=== PATIENT | female | born 1970 | race Caucasian/White ===

== ENCOUNTER 2018-07-12 09:48 | Emergency (ER) | payer OTHER ==
[~2018-07-12] VITALS: Ht 167.6 cm; Wt 80.3 kg
--- NOTE | 2018-07-12 10:02 | PHYS DOC ---
Past History Past Medical History: Migraines, Other Additional Past Medical Histor: post menopausal since 2012 Past Surgical History: Other Additional Past Surgical Histo: ablation Smoking: Cigarettes Alcohol Use: None Drug Use: None Adult General Chief Complaint Chief Complaint: HEADACHE HPI HPI Patient is a 47-year-old female presents complaining of a headache since 3:00 this morning. It is similar to her previous vestibular migraines. No relief with Zofran for her nausea. Reports last throwing up just prior to arrival. No blood in the emesis. Not worst headache of life. Photophobia is present. Patient has been previously prescribed Imitrex, last use it 3 months ago, and has not refilled it since that time. Denies any head trauma. Denies any fever.[] Review of Systems Review of Systems Constitutional: Denies fever or chills [] Eyes: Denies change in visual acuity, redness, or eye pain [] HENT: Denies nasal congestion or sore throat [] Respiratory: Denies cough or shortness of breath [] Cardiovascular: No chest pain or palpitations[] GI: Denies abdominal pain, nausea, vomiting, bloody stools or diarrhea [] : Denies dysuria or hematuria [] Musculoskeletal: Denies back pain or joint pain [] Integument: Denies rash or skin lesions [] Neurologic: Denies focal weakness or sensory changes, see history of present illness [] Endocrine: Denies polyuria or polydipsia [] All other systems were reviewed and found to be within normal limits, except as documented in this note. Physical Exam Physical Exam Constitutional: Well developed, well nourished, mild discomfort, non-toxic appearance. [] HENT: Normocephalic, atraumatic, bilateral external ears normal, oropharynx moist, no oral exudates, nose normal. [] Eyes: PERRLA, EOMI, conjunctiva normal, no discharge. [] Neck: Normal range of motion, tenderness in the left trapezius. No meningismus, supple, no stridor. [] Cardiovascular:Heart rate regular rhythm, no murmur [] Lungs & Thorax: Bilateral breath sounds clear to auscultation [] Abdomen: Bowel sounds normal, soft, no tenderness, no masses, no pulsatile masses. [] Skin: Warm, dry, no erythema, no rash. [] Back: No tenderness, no CVA tenderness. [] Extremities: No tenderness, no cyanosis, no clubbing, ROM intact, no edema. [] Neurologic: Alert and oriented X 3, normal motor function, normal sensory function, no focal deficits noted. [] Psychologic: Affect normal, judgement normal, mood normal. [] EKG EKG [] Radiology/Procedures Radiology/Procedures [] Course & Med Decision Making Course & Med Decision Making Pertinent Labs and Imaging studies reviewed. (See chart for details) ED course: Patient arrived, was placed in bed, and tolerated exam well. She reported significant improvement with the pain medicines administered. She was discharged in improved condition. Medical decision making: There is no evidence of meningitis, encephalitis, intracranial bleed, nor stroke, nor other significant etiology for this headache.[] Dragon Disclaimer Dragon Disclaimer This electronic medical record was generated, in whole or in part, using a voice recognition dictation system. Departure Departure: Impression: Primary Impression: Migraine Disposition: HOME, SELF-CARE Condition: IMPROVED Referrals: ELEANOR FRIAS MD (PCP) Follow-up in 2 days Patient Instructions: Migraine Headache Additional Instructions: Follow-up with your regular doctor in 2 days. Take your medication as prescribed. Return to the ER if worsening pain, fever of more than 101, unable to tolerate medication, or any other concerns. Scripts Metoclopramide Hcl (REGLAN) 10 Mg Tablet 10 MG PO QID for nausea and vomiting, #30 TAB Prov: JENNIFER FLORES DO 07/12/18 Meloxicam (MELOXICAM) 7.5 Mg Tablet 7.5 MG PO DAILY for PAIN, #20 TAB Prov: JENNIFER FLORES DO 07/12/18 Problem Qualifiers Primary Impression: Migraine Migraine type: unspecified Status migrainosus presence: without status migrainosus Intractability: not intractable Qualified Codes: G43.909 - Migraine, unspecified, not intractable, without status migrainosus JENNIFER FLORES DO July 12, 2018 10:02
[2018-07-12] MEDS ORDERED: KETOROLAC 15 MG/ML VIAL. IM ONE (10:15)
[2018-07-12] MEDS ORDERED: METOCLOPRAMIDE HCL 10 MG/2 ML VIAL. IM ONE (10:15)
[2018-07-12] MEDS ORDERED: diphenhydrAMINE 50 MG/ML VIAL IM ONE (10:15)
[2018-07-12] MEDS ORDERED: MELO7.5T29 PO (10:42)
[2018-07-12] MEDS ORDERED: METO10TA81 PO (10:42)
[2018-07-12 10:45] VITALS: BP 143/79
== END 2018-07-12 10:47 | disposition home or self-care (01) ==
LOC: ER 09:48
DX: G43.909 Migraine, unspecified, not intractable, without status migrainosus (principal); F17.210 Nicotine dependence, cigarettes, uncomplicated
CPT/HCPCS: 96372; 99284; J1200; J1885; J2765

== ENCOUNTER 2019-06-30 08:12 | Emergency (ER) | payer SELFPAY ==
[~2019-06-30] VITALS: Ht 165.1 cm; Wt 80.0 kg
[~2019-06-30 08:12] MED LIST: MELO7.5T29 PO; METO10TA81 PO
[2019-06-30 08:27] VITALS: BP 129/67
--- NOTE | 2019-06-30 08:41 | PHYS DOC ---
Past History Past Medical History: Migraines, Other Additional Past Medical Histor: post menopausal since 2012 Past Surgical History: Other Additional Past Surgical Histo: Uterine ablation Smoking: Cigarettes Alcohol Use: None Drug Use: None General Adult EDM: Chief Complaint: HEADACHE HPI: HPI: Patient is a 48-year-old female who presents to the emergency department for evaluation. She states that she has a history of migraines and had a gradual onset of a headache yesterday evening, which is exactly the same as her prior migraines. She has had episodes of nausea and vomiting, and was unable to hold down the Imitrex and Zofran which she has tried taking. She denies any vision changes, numbness, weakness. The headache was gradual in onset, and was not "the worst headache of her life", and she is not having any other neurological symptoms. She has had exactly the same complex of symptoms in the past. There are no alleviating or exacerbating factors to her symptoms except that light seems to worsen her head pain. Review of Systems: Review of Systems: Constitutional: Denies fever or chills Eyes: Denies change in visual acuity HENT: Denies nasal congestion or sore throat Respiratory: Denies cough or shortness of breath Cardiovascular: Denies chest pain or edema GI: Denies abdominal pain bloody stools or diarrhea : Denies dysuria Musculoskeletal: Denies back pain or joint pain Integument: Denies rash Neurologic: Denies focal weakness or sensory changes Endocrine: Denies polyuria or polydipsia Lymphatic: Denies swollen glands Psychiatric: Denies depression or anxiety Heart Score: Risk Factors: Risk Factors: DM, Current or recent (<one month) smoker, HTN, HLP, family history of CAD, obesity. Risk Scores: Score 0 - 3: 2.5% MACE over next 6 weeks - Discharge Home Score 4 - 6: 20.3% MACE over next 6 weeks - Admit for Clinical Observation Score 7 - 10: 72.7% MACE over next 6 weeks - Early Invasive Strategies Current Medications: Current Meds: Current Medications Medications (Trade) Dose Ordered Sig/Chante Start Time Stop Time Status Last Admin Dose Admin Diphenhydramine HCl (Benadryl) 25 mg 1X ONCE 06/30/19 08:45 06/30/19 08:46 UNV Ketorolac Tromethamine (Toradol 30mg Vial) 30 mg 1X ONCE 06/30/19 08:45 06/30/19 08:46 UNV Prochlorperazine Edisylate (Compazine) 10 mg 1X ONCE 06/30/19 08:45 06/30/19 08:46 UNV Sodium Chloride 1,000 ml @ 1,000 mls/hr 1X ONCE 06/30/19 08:45 06/30/19 09:44 UNV Allergies: Allergies: Allergies Coded Allergies Type Severity Reaction Last Updated Verified No Known Drug Allergies 07/12/18 No Physical Exam: PE: PHYSICAL EXAM: CONSTITUTIONAL: Well developed, well nourished HEAD: normocephalic, atraumatic EENT: PERRL, EOMI. Conjunctivae normal color, sclerae non-icteric; moist mucous membranes. NECK: Supple, non-tender; no meningismus. LUNGS: Lungs CTA, breathing even and unlabored. Normal air movement. HEART: Regular rate and rhythm, no murmur CHEST: No deformity; non-tender ABDOMEN: The abdomen is soft, and non-tender, no masses or bruits. EXTREM: Normal ROM; no deformity, no calf tenderness. Normal pulses palpable in all extremities. There is no pedal edema. SKIN: No rash; no diaphoresis NEURO: Alert; normal speech and cognition; CN's grossly intact; strength grossly intact without focal deficit. BACK: No CVA TTP. EKG: EKG: [] Radiology/Procedures: Radiology/Procedures: [] Course & Med Decision Making: Course & Med Decision Making Patient is feeling significantly better at this time. I discussed the importance of close follow-up and return precautions. Good Disclaimer: Good Disclaimer: This electronic medical record was generated, in whole or in part, using a voice recognition dictation system. Departure Departure: Impression: Primary Impression: Migraine Disposition: HOME, SELF-CARE Condition: STABLE Referrals: ELEANOR FRIAS MD (PCP) Patient Instructions: Migraine Headache VIBHA LUGO MD June 30, 2019 08:40
[2019-06-30] MEDS ORDERED: PROCHLORPERAZINE 10 MG/2 ML VIAL. IV ONE (08:45)
[2019-06-30] MEDS ORDERED: KETOROLAC 30 MG/ML VIAL. IVP ONE (08:45)
[2019-06-30] MEDS ORDERED: IV NORMAL SALINE 1,000ML 1,000 ML IV ONE (08:45)
[2019-06-30] MEDS ORDERED: diphenhydrAMINE 50 MG/ML VIAL IVP ONE (08:45)
== END 2019-06-30 09:21 | disposition home or self-care (01) ==
LOC: ER 08:12
DX: G43.909 Migraine, unspecified, not intractable, without status migrainosus (principal); F17.210 Nicotine dependence, cigarettes, uncomplicated; R11.2 Nausea with vomiting, unspecified
CPT/HCPCS: 96361; 96374; 96375; 99284; J0780; J1200; J1885; J7030

== ENCOUNTER 2020-02-02 11:54 | Emergency (ER) | payer SELFPAY ==
[~2020-02-02] VITALS: Ht 165.1 cm; Wt 80.0 kg
[2020-02-02] MEDS ORDERED: diphenhydrAMINE 50 MG/ML VIAL IVP ONE (12:15)
[2020-02-02] MEDS ORDERED: KETOROLAC 30 MG/ML VIAL. IVP ONE (12:15)
[2020-02-02] MEDS ORDERED: PROCHLORPERAZINE 10 MG/2 ML VIAL. IV ONE (12:15)
[2020-02-02] MEDS ORDERED: IV NORMAL SALINE 1,000ML 1,000 ML IV ONE (12:15)
--- NOTE | 2020-02-02 12:54 | PHYS DOC ---
Past History Past Medical History: Migraines, Other Additional Past Medical Histor: post menopausal since 2012; VERTIGO (CARY HUERTA APRN) Past Surgical History: , Tubal ligation, Other Additional Past Surgical Histo: Uterine ablation (CARY HUERTA APRN) Smoking: Cigarettes Alcohol Use: None Drug Use: None (CARY HUERTA APRN) General Adult EDM: Chief Complaint: HEADACHE HPI: HPI: Patient is a 49-year-old female who presents with chills and achiness. Patient was seen by her primary care physician last week and tested for Covid, which was negative. Patient reports that she was feeling better and planned to go to work this morning but woke up with a migraine. Patient has a history of migraines and normally takes Imitrex. Patient has been out of Imitrex for a few months because she lost her insurance and cannot afford. Patient states that she took Zofran this morning with no relief. Patient reporting nausea and vomiting. Patient denies fever, cough,and shortness of breath. (CARY HUERTA APRN) Review of Systems: Review of Systems: Constitutional: Denies fever, reports chills Eyes: Denies change in visual acuity HENT: Denies nasal congestion or sore throat Respiratory: Denies cough or shortness of breath Cardiovascular: Denies chest pain or edema GI: Denies abdominal pain, bloody stools or diarrhea , reports nausea and vomiting : Denies dysuria Musculoskeletal: Denies back pain or joint pain Integument: Denies rash Neurologic: Reports headache,denies focal weakness or sensory changes Endocrine: Denies polyuria or polydipsia Lymphatic: Denies swollen glands Psychiatric: Denies depression or anxiety (CARY HUERTA APRN) Current Medications: Current Meds: Current Medications Medications (Trade) Dose Ordered Sig/Chante Start Time Stop Time Status Last Admin Dose Admin Diphenhydramine HCl (Benadryl) 25 mg 1X ONCE 02/02/20 12:02/02/20 12:37 DC Ketorolac Tromethamine (Toradol 30mg Vial) 30 mg 1X ONCE 02/02/20 12:02/02/20 12:37 DC Prochlorperazine Edisylate (Compazine) 10 mg 1X ONCE 02/02/20 12:02/02/20 12:37 DC Sodium Chloride 1,000 ml @ 1,000 mls/hr 1X ONCE 02/02/20 12:15 02/02/20 13:14 (CARY HUERTA APRN) Allergies: Allergies: Allergies Coded Allergies Type Severity Reaction Last Updated Verified No Known Drug Allergies 02/02/20 No (CARY HUERTA APRN) Physical Exam: PE: Constitutional: Well developed, well nourished, no acute distress, non-toxic appearance. [] HENT: Normocephalic, atraumatic, bilateral external ears normal, oropharynx moist, no oral exudates, nose normal. [] Eyes: PERRLA, EOMI, conjunctiva normal, no discharge. [] Neck: Normal range of motion, no tenderness, supple, no stridor. [] Cardiovascular:Heart rate regular rhythm, no murmur [] Lungs & Thorax: Bilateral breath sounds clear to auscultation [] Abdomen: Bowel sounds normal, soft, no tenderness, no masses, no pulsatile masses. [] Skin: Warm, dry, no erythema, no rash. [] Back: No tenderness, no CVA tenderness. [] Extremities: No tenderness, no cyanosis, no clubbing, ROM intact, no edema. [] Neurologic: Alert and oriented X 3, normal motor function, normal sensory function, no focal deficits noted. [] Psychologic: Affect normal, judgement normal, mood normal. [] (CARY HUERTA APRN) Current Patient Data: Vital Signs: Vital Signs Date Time Temp Pulse Resp B/P (MAP) Pulse Ox O2 Delivery O2 Flow Rate FiO2 02/02/20 12:10 98.0 82 18 131/81 (98) 98 Room Air (CARY HUERTA APRN) EKG: EKG: [] (CARY HUERTA APRN) Radiology/Procedures: Radiology/Procedures: [] (CARY HUERTA APRN) Heart Score: Risk Factors: Risk Factors: DM, Current or recent (<one month) smoker, HTN, HLP, family history of CAD, obesity. Risk Scores: Score 0 - 3: 2.5% MACE over next 6 weeks - Discharge Home Score 4 - 6: 20.3% MACE over next 6 weeks - Admit for Clinical Observation Score 7 - 10: 72.7% MACE over next 6 weeks - Early Invasive Strategies (CARY HUERTA APRN) Course & Med Decision Making: Course & Med Decision Making Pertinent Labs and Imaging studies reviewed. (See chart for detai [] (CARY HUERTA APRN) Course & Med Decision Making I oversaw care of patient. I reviewed case with [employer]. I agree with plan of care and disposition as written. Patient responded to abortive migraine treatment while in ER, no indication for further diagnostic workup and/or admission. Patient felt better prior to leaving, understood SRP and need for PCP follow-up (MONSTER VERDIN DO) Dragon Disclaimer: Good Disclaimer: This electronic medical record was generated, in whole or in part, using a voice recognition dictation system. (CARY HUERTA APRN) Departure Departure: Impression: Primary Impression: Migraine headache Disposition: 01 DC HOME SELF CARE/HOMELESS Condition: IMPROVED Referrals: ELEANOR FRIAS MD (PCP) Patient Instructions: Migraine Headache, [id number] Additional Instructions: Continue taking ibuprofen and tylenol as needed for pain. Take Zofran as prescribed for nausea and vomiting. Follow up with PCP for chronic migraine management. CARY HUERTA APRN Feb 02, 2020 12:54 MONSTER VERDNI DO Feb 03, 2020 12:26
[2020-02-02 13:35] LABS: BILIRUBIN,URINE NEG (NEG); CLARITY,URINE HAZY; COLOR,URINE YELLOW; GLUCOSE,URINE NEG (NEG); NITRITE,URINE NEG (NEG); UROBILINOGEN,URINE 0.2 mg/dL (0.2 mg/dL)
[2020-02-02 13:36] LABS: BACTERIA,URINE FEW /HPF (0-FEW); RBC,URINE OCC /HPF (0-2); SQUAMOUS EPITHELIAL CELL,UR OCC /LPF; WBC,URINE OCC /HPF (0-4)
[2020-02-02 13:46] LABS: BASO # 0.1 x10^3/uL (0.0-0.2); BASO % 1 % (0-3); EOS % 0 % (0-3); HEMATOCRIT 44.8 % (36.0-47.0); HEMOGLOBIN 14.8 g/dL (12.0-15.5); LYMPH # 1.1 x10^3/uL (1.0-4.8); LYMPH % 14 % (24-48); MEAN CORPUSCULAR HEMOGLOBIN 31 pg (25-35); MEAN CORPUSCULAR HGB CONC 33 g/dL (31-37); MEAN CORPUSCULAR VOLUME 95 fL (79-100); MONO # 0.3 x10^3/uL (0.0-1.1); MONO % 4 % (0-9); NEUT # 6.2 x10^3uL (1.8-7.7); NEUT % 81 % (31-73); PLATELET COUNT 339 x10^3/uL (140-400); RED BLOOD COUNT 4.71 x10^6/uL (3.50-5.40); RED CELL DISTRIBUTION WIDTH 13.6 % (11.5-14.5); WHITE BLOOD COUNT 7.7 x10^3/uL (4.0-11.0)
[2020-02-02 13:56] LABS: CALCIUM 8.8 mg/dL (8.5-10.1); CREATININE 0.6 mg/dL (0.6-1.0); GFR 106.7; POTASSIUM 3.9 mmol/L (3.5-5.1)
[2020-02-02 13:59] LABS: ALBUMIN 3.7 g/dL (3.4-5.0); TOTAL BILIRUBIN 0.3 mg/dL (0.2-1.0); TOTAL PROTEIN 7.4 g/dL (6.4-8.2)
[2020-02-02 14:59] VITALS: BP 141/83
== END 2020-02-02 15:03 | disposition home or self-care (01) ==
LOC: ER 11:54
DX: G43.909 Migraine, unspecified, not intractable, without status migrainosus (principal); R11.2 Nausea with vomiting, unspecified; F17.210 Nicotine dependence, cigarettes, uncomplicated
CPT/HCPCS: 36415; 80053; 81001; 81025; 85025; 87086; 96361; 96374; 96375; 99285; J0780; J1200; J1885; J7030

== ENCOUNTER 2020-10-24 04:55 | Emergency (ER) | payer SELFPAY ==
[~2020-10-24] VITALS: Ht 162.6 cm; Wt 82.0 kg
[2020-10-24 05:11] VITALS: BP 150/87
[2020-10-24] MEDS ORDERED: KETOROLAC TROMETHAMINE 10 MG TABLET PO ONE (05:15)
[2020-10-24] MEDS ORDERED: PROCHLORPERAZINE 10 MG/2 ML VIAL. IM ONE (05:15)
[2020-10-24] MEDS ORDERED: ONDANSETRON ODT 4 MG TAB.RAPDIS PO ONE (05:15)
--- NOTE | 2020-10-24 05:21 | PHYS DOC ---
Past History Past Medical History: Migraines, Other Additional Past Medical Histor: post menopausal since 2013; VERTIGO Past Surgical History: , Tubal ligation, Other Additional Past Surgical Histo: Uterine ablation Smoking: Cigarettes Alcohol Use: None Drug Use: None Adult General Chief Complaint Chief Complaint: MULTIPLE COMPLAINTS HPI HPI Patient is a 49-year-old female who presents with a chief complaint of body aches and runny nose and recent exposure to Covid wanting a Covid test. States she also gets migraines and has a migraine in her whole head, forehead 10, dull and achy in nature. States she had not taken any migraine medicine for this. States she is also like to have a work note for today so she can stay home and rest. Review of Systems Review of Systems Review of systems otherwise unremarkable except noted in HPI Allergies Allergies Allergies Coded Allergies Type Severity Reaction Last Updated Verified No Known Drug Allergies 02/02/20 No Physical Exam Physical Exam Constitutional: Well developed, well nourished, no acute distress, non-toxic appearance. [] HENT: Normocephalic, atraumatic, bilateral external ears normal, oropharynx moist, no oral exudates, nose normal. [] Eyes: conjunctiva normal, no discharge. [] Neck: Normal range of motion, no tenderness, supple, no stridor, no lymphadenopathy. [] Cardiovascular:Heart rate regular rhythm, no murmur [] Lungs & Thorax: Bilateral breath sounds clear to auscultation [] Abdomen: soft, no tenderness, no masses, no pulsatile masses. [] Skin: Warm, dry, no erythema, no rash. [] Neurologic: Alert and oriented X 3, no focal deficits noted. [] Psychologic: Affect normal, judgement normal, mood normal. [] EKG EKG [] Radiology/Procedures Radiology/Procedures [] Heart Score C/O Chest Pain: No Risk Factors: Risk Factors: DM, Current or recent (<one month) smoker, HTN, HLP, family history of CAD, obesity. Risk Scores: Risk Factors: DM, Current or recent (<one month) smoker, HTN, HLP, family history of CAD, obesity. Course & Med Decision Making Course & Med Decision Making Patient is a 49-year-old female who presents wanting a Covid swab with body aches and runny nose and a headache cocktail and a work note Vital signs not concerning. Physical exam noted above. Given headache cocktail. Given work note. Covid swab. Covid swab pending. Discussed all findings with patient and advised on quarantine until results come back on Covid swab. Advised to follow-up with primary care physician first thing Saturday. Advised on symptom management at home. Advised to come back to the emergency department with new or concerning symptoms. Patient grateful, verbalized understanding and agreed with plan of discharge. Dragon Disclaimer Dragon Disclaimer This electronic medical record was generated, in whole or in part, using a voice recognition dictation system. Departure Departure: Impression: Primary Impression: Viral syndrome Additional Impression: Migraine Disposition: HOME / SELF CARE / HOMELESS Condition: GOOD Referrals: CELESTINE PÉREZ PA-C (PCP) Patient Instructions: Viral Syndrome Additional Instructions: You have been tested for or diagnosed with COVID-19. It is an infection caused by a new type of coronavirus. COVID-19 will cause cold-like or mild flu symptoms in most. It can cause more severe symptoms like problems breathing in some. There is no treatment for COVID-19. The body will clear the infection over time. Self-care will help to ease discomfort. Steps to Take: Self-Care Rest as needed. Healthy habits may help you feel better. Steps include: Choose healthy foods including fruits and vegetables. Drink water throughout the day. Get plenty of sleep each night. If you smoke, try to quit. It may ease breathing. Avoid alcohol. Keep Others Healthy The virus can spread to others. Droplets are released every time you sneeze or cough. The droplets can get into the mouth, nose, or eyes of people near you and lead to infection. To lower the chances of spreading COVID-19 to others: Stay at home until your doctor has said it is safe to leave. If you tested posi tive this will mean staying isolated until both of the following are true: At least 7 days have passed since the start of illness. You are free of fever for at least 72 hours without the use of medicine. During this time: - Avoid public areas, events, or transportation. Do not return to work or school until your doctor has said it is safe to do so. - Call ahead if you need to go to a medical center. Let them know you may have COVID-19. It will help them guide you where to go. They may also ask you to wear a facemask when you come to the office. - If you call for emergency medical services, let them know you may have COVID- 19. While at home: - Try to avoid close contact with others. Stay about 6 feet away. - If possible, spend most of your time in a separate room from others. - Use a face mask if you will be in close contact with others such as sharing a room or vehicle. - Have someone wipe down common surfaces in the home. Use household doll maker every day on areas like doorknobs, counters, or sinks. - Cough or sneeze into a tissue. Throw the tissue away right after use. If a tissue is not available, cough or sneeze into your elbow. - Wash your hands often. Wash them after sneezing or coughing. Use soap and water and wash for at least 20 seconds. Alcohol based hand film cleaner can be used if soap and water is not available. - Do not prepare food for others. Avoid sharing personal items like forks, spoons, or toothbrushes. - Avoid close contact with pets while you are sick. There is no evidence of the virus passing to pets. This is a safety step until more is known about this virus. Isolation can be frustrating. Social interaction can help. Keep in touch with friends and family through phone and tech options. You can still interact with others in your home, just keep a safe distance of about 6 feet. Follow-up: Your doctors office will check in with you to see if there are any changes in your health. You may be asked to keep track of symptoms to share with them. They will also let you know when you are clear to be in public again. Problems to Look Out For: Contact your doctor if your recovery is not going as you expect. Get emergency care if you have problems such as: - Trouble breathing - Nonstop chest pain or pressure - Changes in awareness, confusion, or problems waking - Lips or face have bluish color - Worsening of symptoms If you think you have an emergency, call for emergency medical services right away. As taken from [facility] Problem Qualifiers AMADO CUNNINGHAM MD Oct 24, 2020 05:21
== END 2020-10-24 05:45 | disposition home or self-care (01) ==
LOC: ER 04:55
DX: B34.9 Viral infection, unspecified (principal); G43.909 Migraine, unspecified, not intractable, without status migrainosus; F17.210 Nicotine dependence, cigarettes, uncomplicated; Z20.822 Contact with and (suspected) exposure to COVID-19; Z98.51 Tubal ligation status
CPT/HCPCS: 96372; 99284; C9803; J0780; J3010; Q0162; U0003